=== PATIENT | male | born 1960 | race Caucasian/White ===

== ENCOUNTER → 2017-08-06 | Outpatient (CLI) | payer BC ==
--- NOTE | 2017-08-07 12:58 | ECHOF ---
Referral Reason:Edema R60.0 MEASUREMENTS -------- HEIGHT: 165.1 cm WEIGHT: 113.4 kg BP: 119/80 RVIDd: 3.6 cm (< 3.3) IVSd: 1.2 cm (0.6 - 1.1) LVIDd: 4.9 cm (3.9 - 5.3) LVPWd: 1.1 cm (0.6 - 1.1) IVSs: 1.4 cm LVIDs: 2.5 cm LVPWs: 1.6 cm LA Diam: 4.0 cm (2.7 - 3.8) LAESV Index (A-L): 16.75 ml/m Ao Diam: 3.4 cm (2.0 - 3.7) AV Cusp: 1.9 cm (1.5 - 2.6) LA Diam: 3.6 cm (2.7 - 3.8) MV EXCURSION: 16.920 mm (> 18.000) MV EF SLOPE: 96 mm/s (70 - 150) EPSS: 0.3 cm MV E Aguilar: 1.13 m/s MV DecT: 246 ms MV A Aguilar: 1.07 m/s MV E/A Ratio: 1.06 FINDINGS -------- Sinus rhythm. Resting tachycardia (HR>100bpm). This was a technically good study. The left ventricular size is normal. There is borderline concentric left ventricular hypertrophy. Overall left ventricular systolic function is normal with, an EF between 60 - 65 %. The right ventricle is mildly enlarged. Normal LA size by volume 22+/-6 ml/m2. The right atrium is normal in size. There is mild aortic valve sclerosis. Mild mitral annular calcification present. There is trace mitral regurgitation. Trace tricuspid regurgitation present. Trace/mild (physiologic) pulmonic regurgitation. The aortic root size is normal. IVC Not well visulized. There is no pericardial effusion. CONCLUSIONS -------- 1. Sinus rhythm. 2. There is mild aortic valve sclerosis. 3. Mild mitral annular calcification present. 4. There is trace mitral regurgitation. 5. Trace tricuspid regurgitation present. 6. Trace/mild (physiologic) pulmonic regurgitation. 7. The aortic root size is normal. 8. IVC Not well visulized. 9. There is no pericardial effusion. 10. Resting tachycardia (HR>100bpm). 11. This was a technically good study. 12. The left ventricular size is normal. 13. There is borderline concentric left ventricular hypertrophy. 14. Overall left ventricular systolic function is normal with, an EF between 60 - 65 %. 15. The right ventricle is mildly enlarged. 16. Normal LA size by volume 22+/-6 ml/m2. 17. The right atrium is normal in size. RENTAL REPRESENTATIVE: Josee Gamez RDCS
== END | disposition home or self-care (01) ==
LOC: RADECHMAIN 16:06
PROVIDERS: ATTEND Family Medicine
DX: I08.3 Combined rheumatic disorders of mitral, aortic and tricuspid valves (principal)
CPT/HCPCS: 93306

== ENCOUNTER 2018-10-05 14:51 | Emergency (ER) | payer BC ==
[2018-10-05 15:03] VITALS: RESP 18; TEMP 98.1
[2018-10-05] MEDS ORDERED: CYCLOBENZAPRINE 10 MG TAB PO STA (15:45)
[2018-10-05] MEDS ORDERED: MORPHINE SULFATE 2 MG/ML SYRINGE IVP STA (15:45)
[2018-10-05] MEDS ORDERED: MORPHINE SULFATE 2 MG/ML SYRINGE IM STA (15:48)
--- NOTE | 2018-10-05 15:57 | XR ---
EXAMINATION TYPE: XR chest 2V DATE OF EXAM: 10/05/2018 COMPARISON: NONE HISTORY: Chest pain and back pain after fall TECHNIQUE: Frontal and lateral views of the chest are obtained. FINDINGS: There is no focal air space opacity, pleural effusion, or pneumothorax seen. The cardiac silhouette size is upper limits of normal. The osseous structures are limited visualization due to patient body habitus. IMPRESSION: No acute cardiopulmonary process.
--- NOTE | 2018-10-05 16:01 | XR ---
EXAMINATION TYPE: XR lumbar spine 2 or 3V DATE OF EXAM: 10/05/2018 CLINICAL HISTORY: Back pain after a fall TECHNIQUE: Frontal and lateral images of the lumbar spine are obtained. COMPARISON: None FINDINGS: There are 5 lumbar type vertebral bodies identified. The lumbar spine shows satisfactory alignment without evidence of acute fracture or dislocation. Vertebral body heights and disk space he ights are within normal limits. Minimal degenerative changes of the lumbar spine are displayed as ant erior osteophytes and facet arthropathy. The overlying soft tissue appears unremarkable. 4 mm probab le right renal calculus is incidentally identified. IMPRESSION: No acute fracture or malalignment is seen in the lumbar spine. Incidentally seen probabl e 4 mm right renal calculus. Minimal degenerative changes of the lumbar spine.
--- NOTE | 2018-10-05 16:02 | XR ---
EXAMINATION TYPE: XR thoracic spine 2V DATE OF EXAM: 10/05/2018 CLINICAL HISTORY: Fall with mid back pain. TECHNIQUE: Frontal, lateral, and swimmer's view of thoracic spine are obtained. COMPARISON: None. FINDINGS: Thoracic spine show satisfactory alignment without evidence of acute fracture or dislocatio n. Vertebral body heights and disc space heights are preserved. Visualized ribs are unremarkable. Multilevel degenerative changes of the thoracic spine are seen as small anterior osteophytes. IMPRESSION: No acute fracture or dislocation is seen in the thoracic spine. Minimal degenerative sherman nges of the thoracic spine.
[2018-10-05] MEDS ORDERED: KETOROLAC 30 MG/ML 1 ML VIAL IM STA (16:25)
--- NOTE | 2018-10-05 16:46 | ED ---
Fall HPI - General Chief Complaint: Fall Stated Complaint: fall/back pain Time Seen by Provider: 10/05/18 15:05 Source: patient Mode of arrival: wheelchair - History of Present Illness Initial Comments: 58yo male with with PMH of DM, HTN, HLD presenting today for cc of left sided low back pain following fall. Pt states that he he was walking when he slipped on a wet stair losing his balance falling his back. Pt denies hitting head, LOC use of anticoagulants. He states that the pain is right sided that increases with twist/bending motions. Pt states the area feels tense. She denies any fever, chills, night sweats, IV drug use, urinary retention, loss of bowel or bladder control, numbness tingling of the lower extremities, or muscle weakness of the LE. Pt denied chest pain, shortness of breath, palpatations, dizziness or any concerning symptoms before falling, he states it was due to wet stairs/ losing his footing. Remainder of ROS (-). Upon arrival pt is ambulatory. VS within acceptable limits. - Related Data Previous Rx's Medication Instructions Recorded Cyclobenzaprine [Flexeril] 10 mg PO BID PRN 7 Days #14 tab 10/05/18 Ibuprofen 800 mg PO Q8H PRN 7 Days #21 tablet 10/05/18 Allergies Allergy/AdvReac Type Severity Reaction Status Date / Time No Known Allergies Allergy Verified 10/05/18 15:03 Review of Systems ROS Statement: Those systems with pertinent positive or pertinent negative responses have been documented in the HPI. ROS Other: All systems not noted in ROS Statement are negative. Constitutional: Denies: fever, chills, night sweats ENT: Denies: ear pain, throat pain Respiratory: Denies: cough, dyspnea, wheezes, hemoptysis, stridor Cardiovascular: Denies: chest pain, palpitations, dyspnea on exertion Endocrine: Denies: fatigue Gastrointestinal: Denies: abdominal pain, nausea, vomiting, diarrhea, constipation, hematemesis, melena, hematochezia Genitourinary: Denies: urgency, dysuria, frequency, hematuria, discharge Musculoskeletal: Reports: back pain, myalgia (right sided low back pain) Skin: Denies: rash, lesions Neurological: Denies: headache, weakness, numbness, paresthesias, confusion, abnormal gait Past Medical History Past Medical History: Diabetes Mellitus, Hyperlipidemia, Hypertension History of Any Multi-Drug Resistant Organisms: None Reported Past Surgical History: No Surgical Hx Reported Past Psychological History: No Psychological Hx Reported Smoking Status: Never smoker Past Alcohol Use History: None Reported Past Drug Use History: None Reported General Exam - General Exam Comments Initial Comments: General: The patient is awake and alert, in no distress, and does not appear acutely ill. Eye: Pupils are equal, round and reactive to light, extra-ocular movements are intact. No nystagmus. There is normal conjunctiva bilaterally. No signs of icterus. Ears, nose, mouth and throat: There are moist mucous membranes and no oral lesions. Neck: The neck is supple, there is no tenderness or JVD. Cardiovascular: There is a regular rate and rhythm. No murmur, rub or gallop is appreciated. Respiratory: Lungs are clear to auscultation, respirations are non-labored, breath sounds are equal. No wheezes, stridor, rales, or rhonchi. Musculoskeletal: Small superficial abrasion to the right lower back, no ecchymosis . Normal ROM of the LE equally b/l with 5/5 strength, pt is able to bend at the thoracic and lumbar spine complaining of tenderness with all movements. No midline tenderness to palpation of the thoracic or lumbar, paravertebral tenderness of the thoracic and lumbar spine. Strength 5/5 of the LE equally b/ l. Sensation intact of the LE equally b/l including the saddle region. DP pulses equal bilaterally 2+. Neurological: A&O x 3. CN II-XII intact, There are no obvious motor or sensory deficits. Coordination appears grossly intact. Speech is normal. Skin: Skin is warm and dry and no rashes. Psychiatric: Cooperative, appropriate mood & affect, normal judgment. Limitations: no limitations Course Vital Signs 10/05/18 10/05/18 15:00 17:07 Temperature 98.1 F Pulse Rate 92 86 Respiratory 18 18 Rate Blood Pressure 146/89 129/82 O2 Sat by Pulse 98 93 L Oximetry - Reevaluation(s) Reevaluation #1: Upon reevaluation s/p medication administration of toradol pt states he experienced some relief, he is resting comfortably in wheelchair no signs of acute distress. 10/05/18 Medical Decision Making - Medical Decision Making Chest x-ray negative. XR of thoracic and lumbar spine (-) for acute process. PE revealed paravertebral tenderness/spasm to palpation of the lumbar and thoracic spine. No exam findings concerning for cauda equina. Patient neurovascularly intact. Pt given morphine, toradol and flexeril for pain mgmt. Upon reevaluation, pt is sitting more comfortably and states that the muscle feels more loosened. At this time feel patient is stable for discharge with a muscle relaxant and ibuprofen 800 for anti-inflammatory properties. Patient is agreeable plan. I recommended orthopedic surgery follow-up, as well as return for any worsening or concerning symptoms. Return parameters were discussed at length she did verbalize understanding. Patient is agreeable discharge. Case discussed with Dr. Abdi who agrees with impression and plan. Pt discharged in stable condition. Disposition Clinical Impression: Back strain, Fall Disposition: HOME SELF-CARE Condition: Good Additional Instructions: Please use medication as discussed. Please follow-up with orthopedic surgery in next 2-3 days. Please return to emergency room if the symptoms increase or worsen or for any other concerns. Prescriptions: Cyclobenzaprine [Flexeril] 10 mg PO BID PRN 7 Days #14 tab PRN Reason: Muscle Spasm Ibuprofen 800 mg PO Q8H PRN 7 Days #21 tablet PRN Reason: Pain Is patient prescribed a controlled substance at d/c from ED?: No Referrals: Anuj Frederick MD [Primary Care Provider] - 1-2 days Nir Richter MD [STAFF PHYSICIAN] - 1-2 days Time of Disposition: 16:45
[2018-10-05 17:09] VITALS: BP 129/82; PULSE 86
== END 2018-10-05 17:09 | disposition home or self-care (01) ==
LOC: EC 14:51
DX: S39.012A Strain of muscle, fascia and tendon of lower back, initial encounter (principal); W01.0XXA Fall on same level from slipping, tripping and stumbling without subsequent striking against object, initial encounter; Y93.01 Activity, walking, marching and hiking; Y92.009 Unspecified place in unspecified non-institutional (private) residence as the place of occurrence of the external cause
CPT/HCPCS: 72070; 72100; 71046; 99283; 96372 ×2; J1885; J2270